=== PATIENT | male | born 1940 | race Caucasian/White ===

== ENCOUNTER 2017-01-04 07:50 | Emergency (ER) | payer OTHER ==
[~2017-01-04] VITALS: Ht 177.8 cm; Wt 94.8 kg
[2017-01-04 08:10] VITALS: TEMP 36.7; Ht 177.8 cm; Wt 94.8 kg
--- NOTE | 2017-01-04 08:30 | EMERGENCY ROOM VISIT NOTE ---
History First contact with patient: 08:16 Chief Complaint: DIZZY Stated Complaint: DIZZY SPELLS,WOOZY Nursing Triage Summary: pt c/o feeling dizzy, especially while lying down at night. Runny nose History of "migraines" with blurry vision. History of Present Illness The patient is a 76 year old male who presents to the Emergency Room with complaints of dizziness. He reports he woke up morning at 4 am with the sensation of the room spinning around him, which went away after a minute. He went back to sleep and this occurred again around 6am. He reports since then he has had 2-3 episodes of this daily. He did not want to come in since he did not think the symptoms were serious, then as they persisted he felt he should be evaluated. He also reports a history of [facility], but instead of getting headaches he gets bilateral blurry visual spots. He had one of these migraines while in the waiting room. He continues to feel this dizzy feeling at this moment, but has been able to walk and stand without difficulty. He has not been eating as much as usual but has tried to drink water. He has not had any chest pain or shortness of breath. Review of Systems See HPI for pertinent positives & negatives. A total of 10 systems reviewed and were otherwise negative. Past Medical/Surgical History No PMHx/PSHx Social History Smoking Status: Former Smoker Current/Historical Medications No Active Prescriptions or Reported Meds Allergies Coded Allergies: No Known Allergies (Unverified , 01/04/17) Physical Exam Vital Signs Date Time Temp Pulse Resp B/P Pulse Ox O2 Delivery O2 Flow Rate FiO2 01/04/17 11:39 101 18 140/99 94 Room Air 01/04/17 11:27 96 18 168/104 95 Room Air 01/04/17 11:06 90 18 128/79 95 Room Air 01/04/17 08:38 99 01/04/17 08:35 96 18 141/96 94 Room Air 108 140/96 115 146/99 01/04/17 08:10 36.7 105 18 139/84 95 Room Air Physical Exam GENERAL: Awake, alert, well-appearing, in no acute distress HENT: Normocephalic, atraumatic. Oropharynx unremarkable. EYES: Normal conjunctiva. Sclera non-icteric. NECK: Supple. No nuchal rigidity. FROM. No JVD. RESPIRATORY: Clear to auscultation. CARDIAC: Regular rate, normal rhythm. Extremities warm and well perfused. Pulses equal. ABDOMEN: Soft, non-distended. No tenderness to palpation. No rebound or guarding. No masses. RECTAL: Deferred. MUSCULOSKELETAL: Chest examination reveals no tenderness. The back is symmetrical on inspection without obvious abnormality. There is no CVA tenderness to palpation. No joint edema. LOWER EXTREMITIES: Calves are equal size bilaterally and non-tender. No edema. No discoloration. NEURO: Normal sensorium. No sensory or motor deficits noted. SKIN: No rash or jaundice noted. Medical Decision & Procedures Laboratory Results 01/04/17 08:35 Red Blood Count 5.11, Mean Corpuscular Volume 96.3, Mean Corpuscular Hemoglobin 35.2, Mean Corpuscular Hemoglobin Concent 36.6, Mean Platelet Volume 9.8, Neutrophils (%) (Auto) 65.2, Lymphocytes (%) (Auto) 25.9, Monocytes (%) (Auto) 6.7, Eosinophils (%) (Auto) 1.6, Basophils (%) (Auto) 0.5, Neutrophils # (Auto) 5.24, Lymphocytes # (Auto) 2.08, Monocytes # (Auto) 0.54, Eosinophils # (Auto) 0.13, Basophils # (Auto) 0.04 01/04/17 08:35 Test 01/04/17 08:35 White Blood Count 8.04 K/uL (4.8-10.8) Red Blood Count 5.11 M/uL (4.7-6.1) Hemoglobin 18.0 g/dL (14.0-18.0) Hematocrit 49.2 % (42-52) Mean Corpuscular Volume 96.3 fL (80-100) Mean Corpuscular Hemoglobin 35.2 pg (25-34) Mean Corpuscular Hemoglobin Concent 36.6 g/dl (32-36) Platelet Count 222 K/uL (130-400) Mean Platelet Volume 9.8 fL (7.4-10.4) Neutrophils (%) (Auto) 65.2 % Lymphocytes (%) (Auto) 25.9 % Monocytes (%) (Auto) 6.7 % Eosinophils (%) (Auto) 1.6 % Basophils (%) (Auto) 0.5 % Neutrophils # (Auto) 5.24 K/uL (1.4-6.5) Lymphocytes # (Auto) 2.08 K/uL (1.2-3.4) Monocytes # (Auto) 0.54 K/uL (0.11-0.59) Eosinophils # (Auto) 0.13 K/uL (0-0.5) Basophils # (Auto) 0.04 K/uL (0-0.2) RDW Standard Deviation 43.3 fL (36.4-46.3) RDW Coefficient of Variation 12.3 % (11.5-14.5) Immature Granulocyte % (Auto) 0.1 % Immature Granulocyte # (Auto) 0.01 K/uL (0.00-0.02) Anion Gap 11.0 mmol/L (3-11) Est Creatinine Clear Calc Drug Dose 68.1 ml/min Estimated GFR () 76.2 Estimated GFR (Non- 65.8 BUN/Creatinine Ratio 17.0 (10-20) Calcium Level 8.7 mg/dl (8.5-10.1) Total Bilirubin 0.9 mg/dl (0.2-1) Aspartate Amino Transf (AST/SGOT) U/L (15-37) Alanine Aminotransferase (ALT/SGPT) 40 U/L (12-78) Alkaline Phosphatase 55 U/L (45-117) Total Protein 7.8 gm/dl (6.4-8.2) Albumin 4.1 gm/dl (3.4-5.0) Globulin 3.7 gm/dl (2.5-4.0) Albumin/Globulin Ratio 1.1 (0.9-2) ECG Indication: altered mental status, other Rhythm: normal sinus Findings: RBBB (incomplete RBBB, ) Comparison ECG Date: no prior available ED Course 8:20: I evaluated the patient. A complete history and physical were performed. 9:40: I ordered a CT head and explained this to the patient as well. He was thirsty and he was able to tolerate PO liquids well. 11:25: The patient was reviewed again with my attending Dr. Bowie. The pt ambulated around the neely which he tolerated well. His blood pressure adamaris slightly so this was repeated before he left. 11:30: He was discharged home with his in good condition. Medical Decision 76 yo male with 4 day history of dizziness - differential includes TIA/stroke, viral URI, sinusitis, inner ear pathology, or intracranial mass. He had an IV placed and labs drawn. His labwork was unremarkable. He was on cardiac monitoring which was unremarkable. His CT scan of the head was without any intracranial findings. His CXR was normal as well. He reported feeling well after evaluation in the ED. He was tolerating PO liquids and crackers. He was deemed stable for discharge home with PCP follow up in the next few days. He was discharged home in good condition. Impression Primary Impression: Dizziness Departure Information Dispostion Home / Self-Care Condition GOOD Prescriptions No Active Prescriptions or Reported Meds Referrals No Doctor, Assigned (PCP) Patient Instructions My [facility] Resident Tracking Resident Involvement: Resident Care Provided Care Provided: Adult ED
[2017-01-04 08:56] LABS: BASO % 0.5 %; BASO ABS # 0.04 K/uL (0-0.2); COMPLETE YES; EOS % 1.6 %; HEMATOCRIT 49.2 % (42-52); IG% 0.1 %; LYMPH % 25.9 %; LYMPH ABS # 2.08 K/uL (1.2-3.4); MEAN CELL VOLUME 96.3 fL (80-100); MEAN CORPUSCULAR HEMOGLOBIN 35.2 pg (25-34); MEAN CORPUSCULAR HGB CONC 36.6 g/dl (32-36); MEAN PLATELET VOLUME 9.8 fL (7.4-10.4); MONO % 6.7 %; NEUT % 65.2 %; PLATELET COUNT 222 K/uL (130-400); RED BLOOD COUNT 5.11 M/uL (4.7-6.1); WHITE BLOOD COUNT 8.04 K/uL (4.8-10.8)
--- NOTE | 2017-01-04 09:08 | DIAGNOSTIC IMAGING REPORT ---
CHEST ONE VIEW PORTABLE HISTORY: "WOOZY FEELING" ?PNA COMPARISON: None. FINDINGS: Mild interstitial thickening likely chronic. No pleural effusions. No pneumothorax. The heart is normal in size. No focal lung consolidations to suggest pneumonia. No evidence for pulmonary edema. IMPRESSION: Mild interstitial thickening is likely chronic. No focal lung consolidations. Electronically signed by: Dani Wan M.D. 01/04/2017 9:07 AM Dictated Date/Time: 01/04/2017 9:00 AM
[2017-01-04 09:22] LABS: ALB/GLOB RATIO 1.1 (0.9-2); ALKALINE PHOSPHATASE 55 U/L (45-117); ALT/SGPT 40 U/L (12-78); BLOOD UREA NITROGEN 19 mg/dl (7-18); CALCIUM 8.7 mg/dl (8.5-10.1); CARBON DIOXIDE 22 mmol/L (21-32); CHLORIDE 105 mmol/L (98-107); GLUCOSE 126 mg/dl (70-99); SODIUM 138 mmol/L (136-145)
--- NOTE | 2017-01-04 10:09 | DIAGNOSTIC IMAGING REPORT ---
CT HEAD WITHOUT CONTRAST (CT) CLINICAL HISTORY: Transient ischemic attack COMPARISON STUDY: No previous studies for comparison. TECHNIQUE: Axial CT of the brain is performed from the vertex to the skull base. IV contrast was not administered for this examination. CT DOSE: 537.48 mGy.cm FINDINGS: No intra or extra-axial mass lesions are visualized. There is no CT evidence of acute cortical infarction. There is no evidence of midline shift. There is no acute hemorrhage. No calvarial fractures are visualized. There are patchy white matter hypodensities likely on a small vessel basis. There is no evidence of pathologic ventricular dilatation. There is no evidence of acute sinusitis IMPRESSION: No acute intracranial findings Electronically signed by: Rigoberto Gonzalez M.D. 01/04/2017 10:08 AM Dictated Date/Time: 01/04/2017 10:07 AM
--- NOTE | 2017-01-04 11:19 | EMERGENCY ROOM VISIT NOTE ---
ED Visit Note First contact with patient: 08:16 Resident Physician Supervision Note: I was present with during the history and exam. I discussed the case with the resident and agree with the findings and plan as documented in the note. Any exceptions or clarifications are listed here: [None] Documented By: Faizan Bowie
[2017-01-04 11:39] VITALS: BP 140/99; PULSE 101; O2SAT 94
== END 2017-01-04 11:45 | disposition home or self-care (01) ==
LOC: C.EDB 07:52
DX: R42 Dizziness and giddiness (principal); Z87.891 Personal history of nicotine dependence

== ENCOUNTER 2024-03-22 23:15 | Inpatient (IN) ==
[2024-03-22] MEDS: OXYMETAZOLINE 0.05% 30 ML BTL ONE (23:49)
[2024-03-23 00:03] LABS: INR 1.6 (0.9-1.1); Partial Thromboplastin Ratio 1.7; Partial Thromboplastin Time 45 Seconds (21-31); Prothrombin Time 16.9 Seconds (9.0-12.0)
[2024-03-23 01:02] LABS: Hematocrit (blood only) 40.7 % (42.0-52.0); Hemoglobin 14.4 g/dl (14.0-18.0); Mean Corpuscular Hemoglobin 32.3 pg (25.0-34.0); Mean Corpuscular Hgb Conc 35.4 g/dL (32.0-36.0); Mean Corpuscular Volume 91.3 fL (80.0-100.0); Mean Platelet Volume 12.8 fL (9.4-12.4); Nucleated RBC # (auto) 0.13 K/uL (0.00-0.12); Nucleated RBC % (auto) 2.1 %; Platelet Count 30 K/uL (130-400); RDW Coefficient of Variation 13.2 % (11.5-14.5); RDW Standard Deviation 43.8 fL (36.4-46.3); Red Blood Count 4.46 M/uL (4.70-6.10); White Blood Count 6.17 K/ul (4.8-10.8)
--- NOTE | 2024-03-23 02:02 | Emergency Department Note ---
Impression & Plan Hyponatremia, Acute anterior epistaxis, Weakness Admit to the [facility] ED Provider Note NAME: VIKTOR NICE AGE: 83 SEX: Male INFORMANT: Patient ED PROVIDER(S): Regla Damon DO CHIEF COMPLAINT: Nosebleed PLAN: Disposition: Admit to the [facility] MEDICAL DECISION MAKING:This is an 83-year-old male patient Who presents to the emergency department with Nosebleed. Patient has a history of lung cancer and is receiving chemotherapy and radiation. Patient's bleeding started around 9 PM this evening. Family explains that the patient has been extremely weak over the past couple of weeks and he is not having difficulty with ambulation. Laboratory studies revealed no evidence of leukocytosis. Patient's hemoglobin was actually elevated at 14.4. Renal function was normal. INR was 1.6. Sodium was low at 126. This certainly could be the cause of the patient's weakness. Family admits that the patient has not been eating or drinking much over the past couple weeks. Patient's right-sided nosebleed was easily controlled with pressure. Patient appeared significantly dehydrated on physical exam. He received IV normal saline solution here in the emergency department. I discussed the case with the [facility] and they will evaluate for further inpatient care. Care/management discussed with: game preserve manager, the patient's and family, and the [facility] Triage Nursing notes: reviewed and agree with them. Vital Signs: reviewed and unremarkable Additional History obtained from: Patient's family was at the bedside Chronic Medical/Social Conditions affecting care: Lung cancer for which she is receiving chemotherapy and radiation Differential Diagnosis: Hypoglycemia, hyponatremia, dehydration, renal insufficiency Diagnostics, independently interpreted by me: ECG: Sinus tachycardia at a rate of 104 with PVCs. There is no ST segment elevation or signs of ischemia. There is no ectopy. Cardiac Monitoring: Sinus tachycardia at 102 HPI: 83 year old Male arrives for evaluation of epistaxis and weakness. patient is receiving chemotherapy and radiation for lung cancer and presents here for a nosebleed. family notes the patient has become extremely weak over the past couple of days and has been having difficulty getting around. PAST MEDICAL HISTORY: See Below, PAST SURGICAL HISTORY: See Below, SOCIAL HISTORY: See Below, HOME MEDICATIONS: See list ALLERGIES: None VITALS: See Below PHYSICAL EXAMINATION: HEENT: Head - normocephalic and atraumatic. Pupils are equal, round, and reactive to light. Extraocular eye muscles are intact, and sclera are anicteric. Nose -small amount of blood within the right nares. Obvious area of bleeding over the septum. mouth -dry buccal mucosa. Oropharynx is nonerythematous and there is no tonsillar exudate or edema noted. Neck: Supple; no cervical of adenopathy or JVD Heart: Tachycardic rate with a regular rhythm. There is a normal S1 and S2 with no murmurs, clicks, or gallops appreciated. Lungs: Clear to auscultation bilaterally with no wheezes, rales, or rhonchi. Abdomen: Soft, completely nontender, nondistended, with good bowel sounds. There are no palpable pulsatile masses or hepatosplenomegaly. There is no guarding, rigidity, or rebound noted. Extremities: No evidence of cyanosis, clubbing, or edema. There are easily palpable peripheral pulses. Skin: warm and dry with poor turgor and no rashes. Emergency department course: The patient was evaluated in room A-4-B. A complete history and physical was performed. IV lock was initiated and labs were drawn as above. The nosebleed was controlled with pressure. Patient was given a liter of normal saline solution wide open. An order was placed for continuous cardiac monitoring. Patient was in a sinus tachycardia at a rate of 102. I discussed the case with the [facility] [address] Hospitalist. 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 Sister Medical history unknown Sister Natural with unknown cause Sister Natural with unknown cause Son No problems noted. Son Skin cancer Social History Smoking Status: Former smoker Tobacco Type: Cigarettes Cigarettes Per Day: 1 PPD x 50yrs+; Do You Dip or Chew Tobacco: No; Hx Alcohol Use: No Hx Substance Use: No Preferred Language: Albanian Communication Ability: Effective Visual Impairment: No Limitations Hearing Ability: Normal Shell Sorter Required: No Beliefs That Will Affect Care: None marital status: Current Living Situation: Spouse current occupational status: retired current occupation: From [employer] How many Children do You have: 2 Feels Safe at Home: Yes Diet: regular caffeine: No during the past year weight has: remained stable Assistive Devices: Cane Allergies Allergies Allergy/AdvReac Type Severity Reaction Status Date / Time No Known Allergies Allergy Unverified 01/10/24 11:01 Home Meds Home Medications Medication Instructions Recorded Confirmed albuterol sulfate 90 mcg/actuation 2 puff inhalation Q6H PRN 01/03/20 03/23/24 aerosol inhaler Shortness Of Breath acetaminophen 325 mg capsule 975 mg PO TID PRN Pain 12/09/23 03/23/24 (Tylenol) apixaban 5 mg tablet (Eliquis) 5 mg PO BID 12/09/23 03/23/24 cholecalciferol (vitamin D3) 25 25 mcg PO DAILY 12/09/23 03/23/24 mcg (1,000 unit) capsule diclofenac sodium 1 % topical gel 4 g topical QID PRN 12/09/23 01/10/24 diphenhydramine HCl 25 mg capsule 25 mg PO TID PRN Itching 12/09/23 03/23/24 (Benadryl) docusate sodium 100 mg capsule 100 mg PO DAILY PRN Constipation 12/09/23 03/23/24 (Colace) food supplemt, lactose-reduced 1 ea PO DAILY 12/09/23 01/10/24 (Ensure oral liquid) levetiracetam 750 mg tablet 750 mg PO BID 12/09/23 03/23/24 mecobalamin (vitamin B12) 1,000 1,000 mcg PO DAILY 12/09/23 03/23/24 mcg chewable tablet tiotropium bromide 2.5 2 inh inhalation QAM 12/09/23 03/23/24 mcg/actuation mist for inhalation vit C 250 mg-E 90 mg-zinc 40 1 tab PO BID 12/09/23 03/23/24 mg-copper 1 [id number] chew tablet (PreserVision AREDS-2) Results & Data (ED) Vital Signs Vital Signs - 24 hr 03/22/24 23:27 03/23/24 00:27 03/23/24 00:30 Temperature 36.6 C Temperature Source Temporal Artery Scan Pulse Rate 114 H 116 H 60 Pulse Rate from SpO2 Sensor 64 Respiratory Rate 20 17 Blood Pressure 110/77 174/73 H Blood Pressure Mean 88 106 Pulse Oximetry 96 99 Oxygen Delivery Method Room Air Room Air Sepsis Recent Fever Within 48 Hours No Sepsis New/Unexplained Change in Mental Status No Sepsis Action Taken by Nursing No Action Required 03/23/24 01:00 03/23/24 01:01 03/23/24 01:30 Temperature Temperature Source Pulse Rate 56 L 60 57 L Pulse Rate from SpO2 Sensor 58 L 60 58 L Respiratory Rate 19 23 22 Blood Pressure 167/84 H 167/84 H 149/76 H Blood Pressure Mean 111 111 100 Pulse Oximetry 99 98 99 Oxygen Delivery Method Room Air Room Air Room Air Sepsis Recent Fever Within 48 Hours Sepsis New/Unexplained Change in Mental Status Sepsis Action Taken by Nursing 03/23/24 02:30 03/23/24 03:00 03/23/24 03:32 Temperature Temperature Source Pulse Rate 105 H 98 H 104 H Pulse Rate from SpO2 Sensor 105 H 98 H 103 H Respiratory Rate 18 24 22 Blood Pressure 116/53 L 125/83 126/85 Blood Pressure Mean 74 97 98 Pulse Oximetry 95 95 95 Oxygen Delivery Method Room Air Room Air Room Air Sepsis Recent Fever Within 48 Hours Sepsis New/Unexplained Change in Mental Status Sepsis Action Taken by Nursing Laboratory Data 03/22/24 23:40 03/23/24 Unknown Lab Results 03/22/24 Range/Units 23:40 WBC 6.17 (4.8-10.8) K/ul RBC 4.46 L (4.70-6.10) M/uL Hgb 14.4 (14.0-18.0) g/dl Hct 40.7 L (42.0-52.0) % MCV 91.3 (80.0-100.0) fL MCH 32.3 (25.0-34.0) pg MCHC 35.4 (32.0-36.0) g/dL RDW Std Deviation 43.8 (36.4-46.3) fL RDW Coeff of Daniella 13.2 (11.5-14.5) % Plt Count 30 L (130-400) K/uL MPV 12.8 H (9.4-12.4) fL Absolute Nucleated RBC 0.13 H (0.00-0.12) K/uL Nucleated RBC % (auto) 2.1 % PT 16.9 H (9.0-12.0) Seconds INR 1.6 H (0.9-1.1) APTT 45 H (21-31) Seconds PTT Ratio 1.7 Administered Medications Levetiracetam (Levetiracetam 250 Mg Tab) 750 mg PO BID JIMI Stop: 04/22/24 08:59 Last Admin: 03/23/24 19:46 Dose: 750 mg Documented By: Admin: 03/23/24 08:23 Dose: 750 mg Documented By: PAKO Umeclidinium [place] (Umeclidinium [place] 62.5mcg/Blister 7 Puffs/Inhaler) 1 puffs INH QAM JIMI Stop: 04/22/24 08:59 Last Admin: 03/23/24 08:23 Dose: 1 puffs Documented By: PAKO Discontinued Medications Sodium Chloride (Nss) 1,000 mls @ 999 mls/hr IV .Q1H1M ONE Stop: 03/23/24 03:48 Last Infusion: 03/23/24 04:03 Dose: Infused Documented By: Admin: 03/23/24 02:52 Dose: 999 mls/hr Documented By: AUSTIN Oxymetazoline HCl (Oxymetazoline 0.05% 30 Ml Btl) 1 sprays NA NOW ONE Stop: 03/22/24 23:33 Last Admin: 03/22/24 23:49 Dose: 1 sprays Documented By: SANDRA Oxymetazoline HCl (Oxymetazoline 0.05% 30 Ml Btl) 1 sprays NA NOW ONE Stop: 03/23/24 04:09 Last Admin: 03/23/24 03:25 Dose: 1 sprays Documented By: AUSTIN Oxymetazoline HCl (Oxymetazoline 0.05% 30 Ml Btl) 1 sprays NA NOW ONE Stop: 03/23/24 06:37 Last Admin: 03/23/24 08:16 Dose: Not Given Documented By: HS Discharge Plan Visit Data Chief Complaint: Nose Bleed (Minor) Stated Complaint: NOSE BLEED, HX OF SAME, CONTROLLED NOW ED Provider: Regla Damon Discharge Problem: Hyponatremia, Acute anterior epistaxis, Weakness Patient Disposition: Admitted As Inpatient Discharge Instructions Interventions: ED Discharge Assessment Last Done: 03/23/24 06:37
[2024-03-23 02:20] LABS: Anion Gap 13 (3-11); BUN Creatinine Ratio 32.9 (10-20); Blood Urea Nitrogen 25 mg/dl (6-23); Calcium 8.4 mg/dl (8.6-10.3); Carbon Dioxide 22 mmol/L (21-32); Chloride 91 mmol/L (98-107); Est GFR (African American) 99.2 ml/min; Est GFR (Non-African American) 85.6 ml/min; Glucose 95 mg/dl (70-99(Fasting)); Potassium 4.2 mmol/L (3.5-5.1); Sodium 126 mmol/L (136-145)
[2024-03-23] MEDS: SODIUM CHLORIDE 0.9% 1,000 ML IV ONE (02:52)
[2024-03-23] MEDS: OXYMETAZOLINE 0.05% 30 ML BTL ONE ×2 (03:25→08:16)
--- NOTE | 2024-03-23 03:41 | History & Physical Report ---
Date of Service March 23, 2024 Assessment & Plan (1) Epistaxis: Plan: Patient with epistaxis, improving with administration of Afrin and nasal clamp. HD stable. No distress. Thrombocytopenic with platelets of 30 which is new Also with mild coagulopathy - PT=16.9, PTT=45, INR=1.6. He is on Eliquis for ?DVT prophylaxis. Stated that "they don't want me to get a clot" - no history of VTE or AF -Continue nose clamp for now -Afrin as needed -ENT consult if bleeding persists -Will hold Eliquis for now -Check LFTs - coagulopathic with thrombocytopenia, hyponatremia ?liver dysfunction -Check RUQUS (2) Hyponatremia: Plan: Hu=329. Possibly secondary to poor oral intake, ?SIADH in setting of active lung cancer? ?secondary to cirrhosis/liver disease? -Check urine and serum osmolality -Check urine Na -Check liver US -Repeat chemistry to trend Na (3) Malignant neoplasm of right upper lobe of lung: Plan: [facility]. Was recently told that his cancer is spreading and he needs to restart chemotherapy. Is due to start next week. (4) Seizures: Plan: Chronic. Stable -Continue Keppra 750mg po BID (5) COPD (chronic obstructive pulmonary disease): Plan: Chronic. Stable. No cough, SOB or wheeze. Adequate oxygenation on room air -Continue Tiotropium -Albuterol PRN History of Present Illness Chief Complaint: epistaxis Primary Care Provider: NO PCP Patrick Velasco is an 83yo male with history of Metastatic lung cancer s/p chemotherapy, Keytruda and recent palliative XRT in December 2023 presenting with epistaxis. Patient receives [facility] care at [facility] in [place]. Was recently found out that his lung cancer has spread and he is scheduled to start chemotherapy next week. He presents to the ER today with complaint of epistaxis which began around 21:00. Patient has had bright red bleeding from the nose. He denies trauma or digital manipulation of his nose. He was given Afrin in the ER which stopped the bleeding. He did have a recurrence of the bleeding and was administered another spray of Afrin bilateral nostrils with clamp placed - he is currently not bleeding. Additionally patient reports worsening balance for several months and increased frequency of falls. Family at bedside states that patient has a poor appetite and does not eat much at all. They think that his increased weakness and gait instability is likely due to not eating. Patient is on Eliquis for DVT prophylaxis Allergies Allergy/AdvReac Type Severity Reaction Status Date / Time No Known Allergies Allergy Unverified 01/10/24 11:01 Home Medications Medication Instructions Recorded Confirmed Type albuterol sulfate 90 mcg/actuation 2 puff inhalation Q6H PRN 01/03/20 03/23/24 History aerosol inhaler Shortness Of Breath acetaminophen 325 mg capsule 975 mg PO TID PRN Pain 12/09/23 03/23/24 History (Tylenol) apixaban 5 mg tablet (Eliquis) 5 mg PO BID 12/09/23 03/23/24 History cholecalciferol (vitamin D3) 25 25 mcg PO DAILY 12/09/23 03/23/24 History mcg (1,000 unit) capsule diclofenac sodium 1 % topical gel 4 g topical QID PRN 12/09/23 01/10/24 History diphenhydramine HCl 25 mg capsule 25 mg PO TID PRN Itching 12/09/23 03/23/24 History (Benadryl) docusate sodium 100 mg capsule 100 mg PO DAILY PRN Constipation 12/09/23 History (Colace) food supplemt, lactose-reduced 1 ea PO DAILY 12/09/23 01/10/24 History (Ensure oral liquid) levetiracetam 750 mg tablet 750 mg PO BID 12/09/23 03/23/24 History mecobalamin (vitamin B12) 1,000 1,000 mcg PO DAILY 12/09/23 03/23/24 History mcg chewable tablet tiotropium bromide 2.5 2 inh inhalation QAM 12/09/23 03/23/24 History mcg/actuation mist for inhalation vit C 250 mg-E 90 mg-zinc 40 1 tab PO BID 12/09/23 03/23/24 History mg-copper 1 [id number] chew tablet (PreserVision AREDS-2) Past Med/Surg History Medical History (Updated 03/23/24 @ 04:51 by Perla Grimaldo DO) Port-A-Cath in place Metal foreign body in head "Shrapnel" 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 Abnormal endoscopy of upper gastrointestinal tract BPH (benign prostatic hyperplasia) Diverticulosis Trigger finger TIA (transient ischemic attack) Presbyopia Nicotine dependence Seizures Neuropathy Lung cancer Chronic anticoagulation Epistaxis Dry eye syndrome COPD (chronic obstructive pulmonary disease) Cataracts, bilateral Embolism Acute emobolism and thrombosis of right internal jugular Surgical History S/P colonoscopy History of bronchoscopy 12/14/18 History of left cataract surgery Family History Mother , at 96 yo Colorectal cancer Diabetes Father , 89yo Myocardial infarction Lung disease Brother Cancer Pt uncertain of type Brother Medical history unknown Brother Medical history unknown Sister No problems noted. Sister Medical history unknown Sister Natural with unknown cause Sister Natural with unknown cause Son No problems noted. Son Skin cancer Social History Smoking Status: Never smoker Tobacco Type: Cigarettes Cigarettes Per Day: 1 PPD x 50yrs+; Do You Dip or Chew Tobacco: No; Hx Alcohol Use: No Hx Substance Use: No Preferred Language: Indian Communication Ability: Effective Visual Impairment: No Limitations Hearing Ability: Normal Post Partum Nurse Required: No Beliefs That Will Affect Care: None marital status: Current Living Situation: Spouse current occupational status: retired current occupation: From [employer] How many Children do You have: 2 Feels Safe at Home: Yes Diet: regular caffeine: No during the past year weight has: remained stable Review of Systems Review of Systems: All systems reviewed & are unremarkable except as noted in HPI & below Physical Exam Physical Exam: General: patient resting comfortably, NAD, non-toxic in appearance, AA&O x 4 Skin: warm, dry, intact, no rashes or lesions HEENT: NC/AT, PERRL, EOMI, anicteric sclera, conjunctiva without injection, external ear normal to inspection and nontender, nares patent, moist mucus membranes, dentition intact, no oropharyngeal lesions, neck supple, trachea midline, no LAD, no thyromegaly, no JVD Heart: +S1/S2, regular, no m/r/g Lungs: equal air entry bilaterally, no rales/rhonchi/wheezes Abd: +BS, soft, NT/ND, no masses/organomegaly/ascites Ext: warm, 2+ pulses in UE/LE bilaterally, no clubbing/cyanosis or edema Neuro: nonfocal, patient AA&O x 4, speech intact, no facial droop, moving all extremities on command with equal strength 5/5 Results & Data Results & Data Vital Signs (Past 12 Hours) Vital Signs Temp Pulse Resp BP Pulse Ox O2 Del Method 03/23/24 03:00 98 H 24 125/83 95 Room Air 03/23/24 02:30 105 H 18 116/53 L 95 Room Air 03/23/24 01:30 57 L 22 149/76 H 99 Room Air 03/23/24 01:01 60 23 167/84 H 98 Room Air 03/23/24 01:00 56 L 19 167/84 H 99 Room Air 03/23/24 00:30 60 17 174/73 H 99 Room Air 03/23/24 00:27 116 H 03/22/24 23:27 36.6 C 114 H 20 110/77 96 Room Air Laboratory Results Laboratory Results WBC 6.17 K/ul (4.8-10.8) 03/22/24 23:40 RBC 4.46 M/uL (4.70-6.10) L 03/22/24 23:40 Hgb 14.4 g/dl (14.0-18.0) 03/22/24 23:40 Hct 40.7 % (42.0-52.0) L 03/22/24 23:40 MCV 91.3 fL (80.0-100.0) 03/22/24 23:40 MCH 32.3 pg (25.0-34.0) 03/22/24 23:40 MCHC 35.4 g/dL (32.0-36.0) 03/22/24 23:40 RDW Std Deviation 43.8 fL (36.4-46.3) 03/22/24 23:40 RDW Coeff of Daniella 13.2 % (11.5-14.5) 03/22/24 23:40 Plt Count 30 K/uL (130-400) L 03/22/24 23:40 MPV 12.8 fL (9.4-12.4) H 03/22/24 23:40 Absolute Nucleated RBC 0.13 K/uL (0.00-0.12) H 03/22/24 23:40 Nucleated RBC % (auto) 2.1 % 03/22/24 23:40 PT 16.9 Seconds (9.0-12.0) H 03/22/24 23:40 INR 1.6 (0.9-1.1) H 03/22/24 23:40 APTT 45 Seconds (21-31) H 03/22/24 23:40 PTT Ratio 1.7 03/22/24 23:40 Sodium 126 mmol/L (136-145) L 03/23/24 Unknown Potassium 4.2 mmol/L (3.5-5.1) 03/23/24 Unknown Chloride 91 mmol/L (98-107) L 03/23/24 Unknown Carbon Dioxide 22 mmol/L (21-32) 03/23/24 Unknown Anion Gap 13 (3-11) H 03/23/24 Unknown BUN 25 mg/dl (6-23) H 03/23/24 Unknown Creatinine 0.76 mg/dl (0.6-1.4) 03/23/24 Unknown Est Cr Clr Drug Dosing Not Reportable 03/23/24 Unknown Est GFR ( Amer) 99.2 ml/min 03/23/24 Unknown Est GFR (Non-Af Amer) 85.6 ml/min 03/23/24 Unknown BUN/Creatinine Ratio 32.9 (10-20) H 03/23/24 Unknown Glucose 95 mg/dl (70-99(Fasting)) 03/23/24 Unknown Calcium 8.4 mg/dl (8.6-10.3) L 03/23/24 Unknown PG Care Time/CCT Total # of Minutes Spent Total Time Spent with Patient: Total time spent is greater than 50% in coordination of care (as documented) at patient's floor/unit and/or counseling patient: Coding Level of Care Code 95654 INT INP/OBS CARE 3/75MIN Diagnoses Epistaxis R04.0 Hyponatremia E87.1 Malignant neoplasm of right upper lobe of lung C34.11 Seizures R56.9 COPD (chronic obstructive pulmonary disease) J44.9
[2024-03-23] MEDS ORDERED: ONDANSETRON INJ 2 MG/ML 2 ML VIAL IV PRN (06:36)
[2024-03-23] MEDS ORDERED: DOCUSATE SODIUM 100 MG CAP PO PRN (06:36)
[2024-03-23] MEDS ORDERED: ALBUTEROL HFA 8 GM INHALER INH PRN (06:36)
[2024-03-23] MEDS ORDERED: ACETAMINOPHEN 325 MG TAB PO PRN (06:36)
[2024-03-23] MEDS ORDERED: diphenhydrAMINE Capsule 25 MG CAP PO PRN (06:36)
[2024-03-23] MEDS: levETIRAcetam 250 MG TAB PO SCH (08:23)
[2024-03-23] MEDS: UMECLIDINIUM BROMIDE 62.5MCG/BLISTER 7 PUFFS/INHALER INH SCH (08:23)
[2024-03-23 08:24] LABS: Magnesium 1.9 mg/dl (1.7-2.4); Phosphorus 3.5 mg/dl (2.5-4.9)
[2024-03-23 08:25] LABS: Anion Gap 12 (3-11); BUN Creatinine Ratio 36.3 (10-20); Blood Urea Nitrogen 29 mg/dl (6-23); Calcium 7.4 mg/dl (8.6-10.3); Carbon Dioxide 20 mmol/L (21-32); Chloride 94 mmol/L (98-107); Est GFR (African American) 97.1 ml/min; Est GFR (Non-African American) 83.8 ml/min; Glucose 85 mg/dl (70-99(Fasting)); Potassium 4.9 mmol/L (3.5-5.1); Sodium 126 mmol/L (136-145)
--- NOTE | 2024-03-23 16:22 | Communication Note ---
Date of Service: March 23, 2024 Please refer to the H&P dictated earlier this morning for details of presentation. In brief, the patient presented with epistaxis which was treated with Afrin and nasal clamp. Bleeding seems to have stopped. However the patient has a low platelet count of 30 and an elevated INR of 1.6. He is on Eliquis for DVT prophylaxis. He will need to be watched to make sure he does not rebleeds. Eliquis held. LFTs negative. Right upper quadrant ultrasound seems to have been ordered by admitting physician. I do not see it resulted. Recheck labs in AM.
[2024-03-24 07:52] LABS: Hematocrit (blood only) 30.5 % (42.0-52.0); Mean Corpuscular Hemoglobin 32.4 pg (25.0-34.0); Mean Corpuscular Hgb Conc 36.1 g/dL (32.0-36.0); Mean Platelet Volume 10.9 fL (9.4-12.4); Nucleated RBC % (auto) 1.8 %; Platelet Count 27 K/uL (130-400); Platelet Estimate Signific. Decreased (Normal); RDW Coefficient of Variation 13.2 % (11.5-14.5); RDW Standard Deviation 42.8 fL (36.4-46.3); Red Blood Count 3.39 M/uL (4.70-6.10)
[2024-03-24 08:27] LABS: Alanine Aminotransferase 86 U/L (7-52); Albumin Level 2.5 gm/dl (3.4-5.0); Alkaline Phosphatase 462 U/L (34-104); Anion Gap 11 (3-11); Aspartate Aminotransferase 174 U/L (13-39); BUN Creatinine Ratio 42.6 (10-20); Bilirubin Direct 2.3 mg/dl (0-0.2); Bilirubin,Total 3.9 mg/dl (0.2-1.0); Blood Urea Nitrogen 29 mg/dl (6-23); Calcium 7.6 mg/dl (8.6-10.3); Carbon Dioxide 20 mmol/L (21-32); Chloride 93 mmol/L (98-107); Est GFR (African American) 103.8 ml/min; Est GFR (Non-African American) 89.6 ml/min; Glucose 70 mg/dl (70-99(Fasting)); Potassium 4.7 mmol/L (3.5-5.1); Sodium 124 mmol/L (136-145); Total Protein 4.5 gm/dl (6.0-8.3)
--- NOTE | 2024-03-24 12:21 | Hospitalist Progress Note ---
Date of Service March 24, 2024 Assessment & Plan (1) Epistaxis: Plan: Patient with epistaxis, improving with administration of Afrin and nasal clamp. HD stable. No distress. Thrombocytopenic with platelets of 30-->27 which is new Also with mild coagulopathy - PT=16.9, PTT=45, INR=1.6. He was on Eliquis for ?DVT prophylaxis. Stated that "they don't want me to get a clot" - no history of VTE or AF. (was given to avoid cancer induced DVT, as per discussion with adan berman in room) nose clamp has been stopped -Afrin as needed -ENT consult if bleeding persists -Will hold Eliquis for now -Check LFTs - coagulopathic with thrombocytopenia, hyponatremia ?liver dysfun ction -will hold off with CODIE pt has appt at the OR on Wednesday 03/28 for further work up 2nd visit. Met with and Lebron-Kika Berman. Pt very weak and is high fall risk, family is very concerned about risk of falling, especially with thrombocytopenia due to tumor induced weakness in conjunction with hyponatremia. As it stands now, preference would be continued hospitalization until right bef ore appt with oncologist. Discussed with family, if they should change mind, will need to contact me. (2) Hyponatremia: Plan: Ia=649-->124. Possibly secondary to poor oral intake, ?SIADH in setting of active lung cancer? ?secondary to cirrhosis/liver disease? -Check urine and serum osmolality -Check urine Na -Check liver US -Repeat chemistry to trend Na will start fluid restriction (3) Malignant neoplasm of right upper lobe of lung: Plan: Patient receives his Oncology care at the [facility]. Was recently told that his cancer is spreading and he needs to restart chemotherapy. Is due to start next week. Family does not know cell type. Believes Stage IV (4) Seizures: Plan: Chronic. Stable -Continue Keppra 750mg po BID (5) COPD (chronic obstructive pulmonary disease): Plan: Chronic. Stable. No cough, SOB or wheeze. Adequate oxygenation on room air -Continue Tiotropium -Albuterol PRN Admission and Anticipated Discharge Date Admission Date: March 23, 2024 Subjective Remains weak and defers to for decisions Review of Systems Review of Systems: weak Ear, Nose, Mouth, Throat: no further epistaxis Physical Exam Physical Exam: General: patient resting comfortably, NAD, non-toxic in appearance, AA&O x 4 Skin: warm, dry, intact, no rashes or lesions HEENT: NC/AT, PERRL, EOMI, anicteric sclera, conjunctiva without injection, external ear normal to inspection and nontender, nares patent, moist mucus membranes, dentition intact, no oropharyngeal lesions, neck supple, trachea midline, no LAD, no thyromegaly, no JVD, no current bleeding Heart: +S1/S2, regular, no m/r/g Lungs: equal air entry bilaterally, no rales/rhonchi/wheezes Abd: +BS, soft, NT/ND, no masses/organomegaly/ascites Ext: warm, 2+ pulses in UE/LE bilaterally, no clubbing/cyanosis or edema Neuro: nonfocal, patient AA&O x 4, speech intact, no facial droop, moving all extremities on command with equal strength 5/5 Results & Data Results & Data Vital Signs (Past 12 Hours) Vital Signs Temp Pulse Pulse Pulse Resp BP Pulse Ox 03/24/24 11:10 36.4 C L 84 18 108/70 92 03/24/24 08:08 36.6 C 86 16 97/61 L 96 03/24/24 04:00 36.4 C L 88 18 118/74 94 03/24/24 03:33 89 O2 Del Method 03/24/24 11:10 Room Air 03/24/24 08:08 Room Air 03/24/24 04:00 Room Air 03/24/24 03:33 Laboratory Results plt 30-->27k Na 126-->124 PG Care Time/CCT Total # of Minutes Spent Total Time Spent with Patient: Total time spent is greater than 50% in coordination of care (as documented) at patient's floor/unit and/or counseling patient: Coding Level of Care Code 61436 SUB INP/OBS CARE 2/35MIN Diagnoses Epistaxis R04.0 Hyponatremia E87.1 Malignant neoplasm of right upper lobe of lung C34.11 Seizures R56.9 Chronic obstructive pulmonary disease, unspecified COPD type J44.9 COPD type: unspecified COPD (5) COPD (chronic obstructive pulmonary disease) COPD type: unspecified COPD Qualified Code(s): J44.9 - Chronic obstructive pulmonary disease, unspecified
--- NOTE | 2024-03-24 14:22 | Discharge Summary ---
Discharge Summary Date of Service March 24, 2024 Admission HPI Per Admitting Provider Patrick Velasco is an 83yo male with history of Metastatic lung cancer s/p chemotherapy, Keytruda and recent palliative XRT in December 2023 presenting with epistaxis. Patient receives [facility] care at [facility] in [place]. Was recently found out that his lung cancer has spread and he is scheduled to start chemotherapy next week. He presents to the ER with complaint of epistaxis which began around 21:00. Patient has had bright red bleeding from the nose. He denies trauma or digital manipulation of his nose. He was given Afrin in the ER which stopped the bleeding. He did have a recurrence of the bleeding and was administered another spray of Afrin bilateral nostrils with clamp placed - he is currently not bleeding. Additionally patient reports worsening balance for several months and increased frequency of falls. Family at bedside states that patient has a poor appetite and does not eat much at all. They think that his increased weakness and gait instability is likely due to not eating. Patient was on Eliquis for DVT prophylaxis, now stopped Principal Dx & Hospital Course #1 = Principal Diagnosis (1) Epistaxis: Patient with epistaxis, improving with administration of Afrin and nasal clamp. HD stable. No distress. Thrombocytopenic with platelets of 30-->27 which is new Also with mild coagulopathy - PT=16.9, PTT=45, INR=1.6. He was on Eliquis for ?DVT prophylaxis. Stated that "they don't want me to get a clot" - no history of VTE or AF. (was given to avoid cancer induced DVT, as per discussion with debbie berman in room) nose clamp has been stopped -Afrin as needed -ENT consult if bleeding persists -Will hold Eliquis for now -Check LFTs - coagulopathic with thrombocytopenia, hyponatremia ?liver dysfunction -will hold off with CODIE, pt has appt [facility] on [facility] 03/28 for further work up 2nd visit. Met with and Debbie-Kika Berman. Pt very weak and is high fall risk, family is very concerned about risk of falling, especially with thrombocytopenia due to tumor induced weakness in conjunction with hyponatremia. As it stands now, preference would be continued hospitalization until right before appt with oncologist. Discussed with family, if they should change mind, will need to contact me. (2) Hyponatremia: Mq=055-->124. Possibly secondary to poor oral intake, ?SIADH in setting of active lung cancer? ?secondary to cirrhosis/liver disease? -Check urine and serum osmolality -Check urine Na -Check liver US -Repeat chemistry to trend Na will start fluid restriction (3) Malignant neoplasm of right upper lobe of lung: Patient receives his [facility]cology care at the [facility]. Was recently told that his cancer is spreading and he needs to restart chemotherapy. Is due to start next week. Family does not know cell type. Believes Stage IV (4) Seizures: Chronic. Stable -Continue Keppra 750mg po BID (5) COPD (chronic obstructive pulmonary disease): Chronic. Stable. No cough, SOB or wheeze. Adequate oxygenation on room air -Continue Tiotropium -Albuterol PRN Discharge Exam General: patient resting comfortably, NAD, non-toxic in appearance, AA&O x 4 Skin: warm, dry, intact, no rashes or lesions HEENT: NC/AT, PERRL, EOMI, anicteric sclera, conjunctiva without injection, external ear normal to inspection and nontender, nares patent, moist mucus membranes, dentition intact, no oropharyngeal lesions, neck supple, trachea midline, no LAD, no thyromegaly, no JVD, no current bleeding Heart: +S1/S2, regular, no m/r/g Lungs: equal air entry bilaterally, no rales/rhonchi/wheezes Abd: +BS, soft, NT/ND, no masses/organomegaly/ascites Ext: warm, 2+ pulses in UE/LE bilaterally, no clubbing/cyanosis or edema Neuro: nonfocal, patient AA&O x 4, speech intact, no facial droop, moving all extremities on command with equal strength 5/5 Updated Medication List Medication Instructions Recorded Confirmed Type albuterol sulfate 90 mcg/actuation 2 puff inhalation Q6H PRN 01/03/20 03/23/24 History aerosol inhaler Shortness Of Breath acetaminophen 325 mg capsule 975 mg PO TID PRN Pain 12/09/23 03/23/24 History (Tylenol) apixaban 5 mg tablet (Eliquis) 5 mg PO BID 12/09/23 03/23/24 History cholecalciferol (vitamin D3) 25 25 mcg PO DAILY 12/09/23 03/23/24 History mcg (1,000 unit) capsule diclofenac sodium 1 % topical gel 4 g topical QID PRN 12/09/23 01/10/24 History diphenhydramine HCl 25 mg capsule 25 mg PO TID PRN Itching 12/09/23 03/23/24 History (Benadryl) docusate sodium 100 mg capsule 100 mg PO DAILY PRN Constipation 12/09/23 03/23/24 History (Colace) food supplemt, lactose-reduced 1 ea PO DAILY 12/09/23 01/10/24 History (Ensure oral liquid) levetiracetam 750 mg tablet 750 mg PO BID 12/09/23 03/23/24 History mecobalamin (vitamin B12) 1,000 1,000 mcg PO DAILY 12/09/23 03/23/24 History mcg chewable tablet tiotropium bromide 2.5 2 inh inhalation QAM 12/09/23 03/23/24 History mcg/actuation mist for inhalation vit C 250 mg-E 90 mg-zinc 40 1 tab PO BID 12/09/23 03/23/24 History mg-copper 1 [id number] chew tablet (PreserVision AREDS-2) Hospital Stay Data Consultations 03/23/24 03:48 ED Decision to Admit Stat Pending Results Patient Have Any Pending Studies at Discharge: No Discharge Instructions Given to Patient (Per Discharging Provider) Pt to be transferred to [facility] for management of known Lung Cancer. Spoke to CORNEL Paez at the [facility] and arrangements have been completed Home Health Attestation I certify that this patient is under my care and that I, or a physicians food and beverage assistant working with me, had a face to-face encounter that meets the home health [id number] encounter requirements with this patient. The encounter with the patient was in whole, or in part, for the following medical condition, which is the primary reason for home health care (list medical condition): I certify that, based on my findings, the following services are medically necessary home health services: My clinical findings support the need for the above services because: Further, I certify that my clinical findings support that this patient is homebound (i.e. absences from home require considerable and taxing effort and are for medical reasons or [employer] services or infrequently or of short duration when for other reasons) because: Certification for Home Health Services: Based on the above findings, I certify that this patient is confined to the home and needs intermittent nursing home care, physical therapy and/or speech therapy or continues to need occupational therapy. The patient is under my care, and I have initiated the establishment of the plan of care. This patient will be followed by a physician who will periodically review the plan of care. Total Time Total Time Spent Total Time Spent (In Minutes): 45 Coding Level of Care Code 74460 INP/OBS DISCH >30 MIN Diagnoses Epistaxis R04.0 Hyponatremia E87.1 Malignant neoplasm of right upper lobe of lung C34.11 Seizures R56.9 Chronic obstructive pulmonary disease, unspecified COPD type J44.9 COPD type: unspecified COPD
--- NOTE | 2024-03-24 23:24 | Electrocardiogram Report ---
Test Reason : Blood Pressure : / mmHG Vent. Rate : 104 BPM Atrial Rate : 104 BPM P-R Int : 180 ms QRS Dur : 084 ms QT Int : 342 ms P-R-T Axes : 070 132 010 degrees QTc Int : 449 ms Sinus tachycardia with occasional Premature ventricular complexes Premature atrial complexes Right ventricular hypertrophy Abnormal ECG When compared with ECG of 03-JAN-2020 14:16, Premature ventricular complexes are now Present Questionable change in QRS axis Confirmed by Moose Avila ([id number]) on 03/24/2024 11:23:45 PM Referred By: REFERRED SELF Confirmed By:Moose Avila
== END 2024-03-24 16:18 | DRG 813 ==
LOC: SUATTDRO → ED 23:15 → SUATTDRO 03-23 03:48 → EDINP 03-23 03:48 → 2W 03-23 06:37